=== PATIENT | male | born 1930 | race Caucasian/White ===

== ENCOUNTER 2016-10-16 15:03 | Emergency (ER) | payer MEDICARE, BC, OTHER ==
[2016-10-16 15:26] VITALS: BP 152/75
--- NOTE | 2016-10-16 15:53 | UC ---
Altered Mental Status HPI - HPI Summary HPI Summary: 85 year old male with history of TIA presents stating "Starting yesterday I was sitting down in bed and got up really fast, felt dizzy/woozy, not able to walk straight... Bent down to plug something in outlet and lost my balance, fell backwards on my bottom". Also c/o feeling "foggy" and "not myself" since yesterday- denies hitting head when he fell backwards/denies LOC. Pt states he uses cane to ambulate, lives alone at home and has aide come in 3xweek to help. 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 Denies fevers, or dysuria. (+) mild confusion per patient at times but per his staff and friends he states he fine. denies vision changes. he denies numbness in arm or leg. bilateral leg with "funny" sensation and weakness at times. Per patient mini stroke 3-4 weeks ago and went from [place] [facility] and sent to [facility] for [facility] and then to the [facility] . Had [place] with stent in 1999 and went to [facility] and no acute concerns . just got off heart monitor yesterday and normal per patient and "good report" and had normal labs at that time. Neuro if at the [facility] and cards at the [facility]. He had MRI brain [address] scan and they did not show any acute concerns. [ End ] - History Of Current Complaint Chief Complaint: UCGeneralIllness Stated Complaint: UNSTEADY WITH WALKING Time Seen by Provider: 10/16/16 15:26 Hx Obtained From: Patient Onset/Duration: Sudden Onset Severity Initially: Moderate Character: Confusion Aggravating Factor(s): Nothing Alleviating Factor(s): Nothing Associated Signs And Symptoms: Positive: Weakness - b/l LE - Risk Factors Cardiac Risk Factors: Prior GA CVA Risk Factor: Prior CVA/TIA - Allergies/Home Medications Allergies/Adverse Reactions: Allergies Allergy/AdvReac Type Severity Reaction Status Date / Time Penicillins Allergy Itching Verified 10/16/16 15:10 Home Medications: Home Medications Clopidogrel Bisulfate [Plavix] 1 tab BEDTIME 10/16/16 [History Confirmed ] Rest Of Med List Unobtainable 10/16/16 [History] PMH/Surg Hx/FS Hx/Imm Hx Previously Healthy: Yes Endocrine History: Diabetes, Dyslipidemia Cardiovascular History: Myocardial Infarction GI/ History: Renal Disease - Surgical History Surgical History: Yes Surgery Procedure, Year, and Place: cardiac stent. vasectomy - Social History Occupation: Retired Lives: Alone Alcohol Use: None Substance Use Type: None Smoking Status (MU): Never Smoked Tobacco - Immunization History Most Recent Influenza Vaccination: NOT YET 2017 Review of Systems Constitutional: Fatigue Eyes: Negative ENT: Negative Neurological: Weakness, Other - dizziness when standing up quickly All Other Systems Reviewed And Are Negative: Yes Physical Exam Triage Information Reviewed: Yes Appearance: Well-Appearing Vital Signs: Initial Vital Signs Temp 99 F 10/16/16 15:11 Pulse 64 10/16/16 15:11 Resp 20 10/16/16 15:11 BP 152/75 10/16/16 15:11 Pulse Ox 99 10/16/16 15:11 Vital Signs Reviewed: Yes ENT Exam: Normal Dental Exam: Normal Neck exam: Normal Respiratory Exam: Normal Cardiovascular Exam: Normal Abdominal Exam: Normal Musculoskeletal Exam: Normal Neurological Exam: Normal, Other - strength UE and LE 5/5 and DTR's intact. FTN intact. sensation intact. neuro deficits 2-12 intact. normal rhomberg, gait shows some mild shuffing Neurological: Positive: Alert, Muscle Tone Normal Psychological Exam: Normal Skin Exam: Normal AMS Course/Dx - Course Course Of Treatment: Advised patient to go to ED for further work up as he has multiple co morbities -- I spoke with his son Dr Good who was able to convince patient to go to ED as he declined when I advised to go there. - Differential Dx/Clinical Impression Differential Diagnosis/HQI/PQRI: CVA, Intracranial Bleed, TIA Provider Diagnoses: Dizziness / lethargy - Provider Notifications Discussed Patient Care With: Harvey Good - patients son -- [facility] Time Discussed With Above Provider: 16:33 - spoke with dr stephenson at [facility] Discharge - Discharge Plan Condition: Fair Disposition: HOME Referrals: Non Staff,Doctor [Primary Care Provider] - 5 Days
== END 2016-10-16 16:46 | disposition short-term general hospital (02) ==
LOC: UCCORT 15:03
DX: R42 Dizziness and giddiness (principal); R53.83 Other fatigue; E78.5 Hyperlipidemia, unspecified; E11.9 Type 2 diabetes mellitus without complications; I25.2 Old myocardial infarction
CPT/HCPCS: 99213; G0463

== ENCOUNTER → 2016-12-02 12:38 | Emergency (ER) | payer MEDICARE, BC, OTHER ==
[~2016-12-02 12:38] MED LIST: Aspirin EC TAB* 325 MG ONE; Aspirin TAB* 325 MG PO ONE; NS 0.9% 1000 ML* 1,000 ML IV ONE
--- NOTE | 2016-12-02 13:13 | RAD ---
Indication: Code Rios. Weakness. Vomiting. TIA last week. Comparison: April 16, 2009 CT. Technique: Noncontrast CT vertex of skull through foramen magnum. Report: Mild prominence of the cerebral sulci area in unremarkable ventricles and basal cisterns. Decreased density in the periventricular and subcortical white matter while non-specific is most likely due to chronic microangiopathy. Rios matter white matter differentiation is preserved without evidence for edema. No intra or extra axial hemorrhage, mass, or fluid collection detected. Unremarkable visualized orbital contents. Unremarkable calvarium and skull base. Unremarkable scalp. The visualized paranasal sinuses and mastoid air spaces are clear. IMPRESSION: Negative for intracranial hemorrhage or CT stigmata of ischemic stroke. Mild involutional change and stigmata of chronic small vessel ischemic disease with mild progression compared with the 2010 exam. Results discussed with Dr. Flores 12/02/2016 1:09 PM EDT
[2016-12-02 13:14] LABS: Hematocrit 35 % (42-52); Hemoglobin 11.9 g/dl (14.0-18.0); Mean Corpuscular HGB Conc 34 g/dl (31-36); Mean Corpuscular Hemoglobin 30 pg (27-31); Mean Corpuscular Volume 88 fL (80-94); Mean Platelet Volume 8 um3 (7.4-10.4); Red Blood Count 3.99 10^6/ul (4.0-5.4); Red Cell Distribution Width 14 % (10.5-15); White Blood Count 15.2 10^3/ul (3.5-10.8)
[2016-12-02 13:28] LABS: Albumin 4.1 g/dL (3.2-5.2); BUN/Creatinine Ratio 14.1 (8-20); Calcium 9.1 mg/dL (8.6-10.3); EGFR African American 64.6 (>60); EGFR Non-African American 50.2 (>60); Potassium 4.4 mmol/L (3.5-5.0); Total Bilirubin 0.5 mg/dL (0.2-1.0); Total Protein 7.1 g/dL (6.4-8.9)
[2016-12-02 13:29] LABS: Troponin I 0.02 ng/mL (<0.04)
--- NOTE | 2016-12-02 13:29 | RAD ---
HISTORY: Neurological changes COMPARISONS: December 02, 2013 VIEWS: 1: frontal portable view of the chest at 12:53 PM FINDINGS: LINES AND TUBES: None. CARDIOMEDIASTINAL SILHOUETTE: The cardiomediastinal silhouette is normal for portable technique. PLEURA: The costophrenic angles are sharp. No pleural abnormalities are noted. LUNG PARENCHYMA: The lungs are clear. ABDOMEN: The upper abdomen is clear. There is no subphrenic gas. BONES AND SOFT TISSUES: No bone or soft tissue abnormalities are noted. IMPRESSION: NO ACTIVE CARDIOPULMONARY DISEASE.
[2016-12-02 13:58] LABS: Urine Bacteria Absent (Absent); Urine Bilirubin Negative (Negative); Urine Glucose Negative (Negative); Urine Nitrite Negative (Negative)
--- NOTE | 2016-12-02 15:46 | ED ---
Tricia Callaway Alfonso, scribed for Dorian Flores MD on 12/02/16 at 1259 . Neurological HPI - HPI Summary HPI Summary: OMAR ABAD 20 MINUTES OVERHEADED AT 1209. This patient is an 86 year old M BIBA to [facility] with a chief complaint of dysphagia since between 0800 and 1000 today. He states I think It was a TIA and I couldnt talk. The patient rates the pain 0/10 in severity. Symptoms aggravated by nothing. Symptoms alleviated by nothing. EMS reports possible right-sided facial droop. - History of Current Complaint Chief Complaint: EDNeurologicalDeficit Stated Complaint: STROKE-LIKE SYMPTOMS Time Seen by Provider: 12/02/16 12:40 Hx Obtained From: Patient, EMS Onset/Duration: Started hours ago, Still Present Timing: Constant Pain Intensity: 0 Pain Scale Used: 0-10 Numeric Character: Other: - dysphagia, possible right-sided facial droop. 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 vasectomy - Family History Known Family History: Positive: Cardiac Disease, Other - Lung cancer - Social History Alcohol Use: None Substance Use Type: Reports: None Smoking Status (MU): Never Smoked Tobacco Review of Systems Negative: Fever Neurological: Other - Dysphagia, possible right-sided facial droop. All Other Systems Reviewed And Are Negative: Yes Physical Exam - Summary Physical Exam Summary: General: well-appearing, no pain distress Skin: warm, color reflects adequate perfusion, dry Head: normal Eyes: EOMI, FELIPE ENT: normal Neck: supple, nontender Respiratory: CTA, breath sounds present Cardiovascular: RRR Abdomen: soft, nontender Bowel: present Musculoskeletal: normal, strength/ROM intact Neurological: sensory/motor intact, A&O x3, See NIH scale Psychological: affect/mood appropriate Triage Information Reviewed: Yes Vital Signs On Initial Exam: Initial Vitals BP 190/80 12/02/16 12:57 Vital Signs Reviewed: Yes Diagnostics - Vital Signs Vital Signs Temp Pulse Resp BP Pulse Ox 12/02/16 15:00 25 188/83 12/02/16 14:30 16 176/77 12/02/16 14:00 18 179/66 12/02/16 13:03 95 12/02/16 13:00 184/82 12/02/16 12:59 98.2 F 81 14 182/84 97 12/02/16 12:57 190/80 - Laboratory Lab Results: Lab Results 12/02/16 12/02/16 12/02/16 Range/Units 13:01 13:01 13:01 WBC (3.5-10.8) 10^3/ul RBC (4.0-5.4) 10^6/ul Hgb (14.0-18.0) g/dl Hct (42-52) % MCV (80-94) fL MCH (27-31) pg MCHC (31-36) g/dl RDW (10.5-15) % Plt Count (150-450) 10^3/ul MPV (7.4-10.4) um3 Neut % (Auto) (38-83) % Lymph % (Auto) (25-47) % Bullitt % (Auto) (1-9) % Eos % (Auto) (0-6) % Baso % (Auto) (0-2) % Absolute Neuts (auto) (1.5-7.7) 10^3/ul Absolute Lymphs (auto) (1.0-4.8) 10^3/ul Absolute Monos (auto) (0-0.8) 10^3/ul Absolute Eos (auto) (0-0.6) 10^3/ul Absolute Basos (auto) (0-0.2) 10^3/ul Absolute Nucleated RBC 10^3/ul Nucleated RBC % INR (Anticoag Therapy) 0.98 (0.89-1.11) APTT 28.0 (26.0-36.3) seconds Sodium 137 (133-145) mmol/L Potassium 4.4 (3.5-5.0) mmol/L Chloride 104 (101-111) mmol/L Carbon Dioxide 26 (22-32) mmol/L Anion Gap 7 (2-11) mmol/L BUN 19 (6-24) mg/dL Creatinine 1.35 H (0.67-1.17) mg/dL Est GFR ( Amer) 64.6 (>60) Est GFR (Non-Af Amer) 50.2 (>60) BUN/Creatinine Ratio 14.1 (8-20) Glucose 153 H (70-100) mg/dL Lactic Acid 1.9 (0.5-2.0) mmol/L Calcium 9.1 (8.6-10.3) mg/dL Total Bilirubin 0.50 (0.2-1.0) mg/dL AST 11 L (13-39) U/L ALT 11 (7-52) U/L Alkaline Phosphatase 83 (34-104) U/L Troponin I 0.02 (<0.04) ng/mL Total Protein 7.1 (6.4-8.9) g/dL Albumin 4.1 (3.2-5.2) g/dL Globulin 3.0 (2-4) g/dL Albumin/Globulin Ratio 1.4 (1-3) Triglycerides 187 mg/dL Cholesterol 130 mg/dL LDL Cholesterol 55 mg/dL HDL Cholesterol 38.0 mg/dL Urine Color Urine Appearance Urine pH (5-9) Ur Specific Williams (1.010-1.030) Urine Protein (Negative) Urine Ketones (Negative) Urine Blood (Negative) Urine Nitrate (Negative) Urine Bilirubin (Negative) Urine Urobilinogen (Negative) Ur Leukocyte Esterase (Negative) Urine WBC (Auto) (Absent) Urine RBC (Auto) (Absent) Urine Bacteria (Absent) Urine Glucose (Negative) Blood Type Antibody Screen 12/02/16 12/02/16 12/02/16 Range/Units 13:01 13:01 13:37 WBC 15.2 H (3.5-10.8) 10^3/ul RBC 3.99 L (4.0-5.4) 10^6/ul Hgb 11.9 L (14.0-18.0) g/dl Hct 35 L (42-52) % MCV 88 (80-94) fL MCH 30 (27-31) pg MCHC 34 (31-36) g/dl RDW 14 (10.5-15) % Plt Count 197 (150-450) 10^3/ul MPV 8 (7.4-10.4) um3 Neut % (Auto) 80.1 (38-83) % Lymph % (Auto) 15.8 L (25-47) % Bullitt % (Auto) 3.4 (1-9) % Eos % (Auto) 0.4 (0-6) % Baso % (Auto) 0.3 (0-2) % Absolute Neuts (auto) 12.2 H (1.5-7.7) 10^3/ul Absolute Lymphs (auto) 2.4 (1.0-4.8) 10^3/ul Absolute Monos (auto) 0.5 (0-0.8) 10^3/ul Absolute Eos (auto) 0.1 (0-0.6) 10^3/ul Absolute Basos (auto) 0 (0-0.2) 10^3/ul Absolute Nucleated RBC 0.01 10^3/ul Nucleated RBC % 0.1 INR (Anticoag Therapy) (0.89-1.11) APTT (26.0-36.3) seconds Sodium (133-145) mmol/L Potassium (3.5-5.0) mmol/L Chloride (101-111) mmol/L Carbon Dioxide (22-32) mmol/L Anion Gap (2-11) mmol/L BUN (6-24) mg/dL Creatinine (0.67-1.17) mg/dL Est GFR ( Amer) (>60) Est GFR (Non-Af Amer) (>60) BUN/Creatinine Ratio (8-20) Glucose (70-100) mg/dL Lactic Acid (0.5-2.0) mmol/L Calcium (8.6-10.3) mg/dL Total Bilirubin (0.2-1.0) mg/dL AST (13-39) U/L ALT (7-52) U/L Alkaline Phosphatase (34-104) U/L Troponin I (<0.04) ng/mL Total Protein (6.4-8.9) g/dL Albumin (3.2-5.2) g/dL Globulin (2-4) g/dL Albumin/Globulin Ratio (1-3) Triglycerides mg/dL Cholesterol mg/dL LDL Cholesterol mg/dL HDL Cholesterol mg/dL Urine Color Straw Urine Appearance Clear Urine pH 7.0 (5-9) Ur Specific Williams 1.013 (1.010-1.030) Urine Protein 2+(100 mg/dl) H (Negative) Urine Ketones Negative (Negative) Urine Blood Negative (Negative) Urine Nitrate Negative (Negative) Urine Bilirubin Negative (Negative) Urine Urobilinogen Negative (Negative) Ur Leukocyte Esterase Negative (Negative) Urine WBC (Auto) Trace(0-5/hpf) (Absent) Urine RBC (Auto) Trace(0-2/hpf) (Absent) Urine Bacteria Absent (Absent) Urine Glucose Negative (Negative) Blood Type B Positive Antibody Screen Negative Result Diagrams: 12/02/16 13:01 12/02/16 13:01 Lab Statement: Any lab studies that have been ordered have been reviewed, and results considered in the medical decision making process. - Radiology CXR Radiology Interpretation Completed By: Radiologist - NO ACTIVE CARDIOPULMONARY DISEASE. ED physician has reviewed this radiology report and agrees. - CT Brain CT Interpretation Completed By: Radiologist - Negative for intracranial hemorrhage or CT stigmata of ischemic stroke. Mild involutional change and stigmata of chronic small vessel ischemic disease with mild progression compared with the 2010 exam. Results discussed with Dr. Flores 12/02/2016 1: 09 PM EDT. ED physician has reviewed this radiology report and agrees. - EKG 1314 Cardiac Rate: NL - BPM 81 EKG Rhythm: Sinus Rhythm EKG Interpretation: No Ectopy. ID [id number]. Nonspecific intraventricular conduction delay. NIH Scale - NIH Scale Level of Consciousness: Alert/Keenly Responsive Ask Patient the Month and His/Her Age: Both Correct Ask Pt to Open/Close Eyes and Isobutylene Operator Chief/Release Non-Paretic Hand: Both Correctly Best Gaze (Only Horizontal Eye Movement): Normal Visual Field Testing: No Visual Loss Facial Paresis-Pt to Smile & Close Eyes or Grimace Symmetry: Normal/Symmetrical Motor Function - Right Arm: No Drift-Holds 10 Seconds Motor Function - Left Arm: No Drift-Holds 10 Seconds Motor Function - Right Leg: No Drift-Holds 10 Seconds Motor Function - Left Leg: No Drift-Holds 10 Seconds Limb Ataxia-Must be out of Proportion to Weakness Present: Absent Sensory (Use Pinprick to Test Arms/Legs/Trunk/Face): Normal Best Language (Describe Picture, Name Items): Some Loss Dysarthria (Read Several Words): Normal Extinction and Inattention: No Abnormality Total Score: 1 Course/Dx - Course Course Of Treatment: DR THOMPSON, NEUROLOGY, SAW PATIENT IN ED. PATIENT GIVEN ASA 325MG PO IN ED. PATIENT/FAMILY WISHES PATIENT TO GO TO THE [facility]. THE [facility] HAS NEUROLOGY (FOR RECURRENT TIA WORKUP AND POSSIBLE EEG) AND VASCULAR SURGERY (IF PATIENT WERE TO REQUIRE AND ENDARTERECTOMY). ACCEPTED BY DR ROE AT THE [facility]. - Diagnoses Provider Diagnoses: History of recurrent TIAs, TIA (transient ischemic attack) - Physician Notifications Discussed Care Of Patient With: Rashaun Thompson Time Discussed With Above Provider: 12:46 Instructed by Provider To: Other - Consulted Dr. Thompson (neurologist) who will see the patient in the ED. Consulted Dr. Auguste from the [facility] at 1347 who agrees to admit the patient in a transfer. - Critical Care Time Critical Care Time: 30-74 min Discharge - Discharge Plan Condition: Stable Disposition: TRANS HIGHER LVL OF CARE FAC Referrals: Non Staff,Doctor [Primary Care Provider] - The documentation as recorded by the Tricia mayes Alfonso accurately reflects the service I personally performed and the decisions made by me, Dorian Flores MD.
[2016-12-02 16:48] VITALS: BP 170/86
--- NOTE | 2016-12-02 22:50 | CONS ---
CONSULTATION REPORT: DATE OF CONSULTATION: 12/02/2016. PATIENT OF: Dr. Flores in [facility]. HISTORY OF PRESENT ILLNESS: Mr. Good is an 86-year-old right-handed man, who I am asked to evaluate for possible stroke. History today is that he woke up at roughly 8 o'clock this morning and had apparently normal speech. Occasionally he will talk to himself and he had no problems with speech. He did not try to speak between 8 and 10 o'clock and then at roughly 10 o'clock he began trying to speak to himself, he had significant difficulty, said he could not get words out at all. He tried to call and use the phone and he had comprehension problems and could not manage to do that. Apparently, he says that [facility] found him at 11:00, and contacted the ambulance and brought him in. The last normal even if we take that his speech was normal at 8 o'clock and that no one else was there would have been somewhere between 8 and 10 o'clock and he presented shortly to the ER before 1 o'clock and was therefore not a TPA candidate. The most strict guidelines would call for 3- hour window even for him to seize over age 81, but even with a more loose 4-1/2 hour window, he was not a TPA candidate. His past history was that he had a stroke in 1999 and in the past month or so he has been evaluated in [facility] a few times for speech related problems. His history is from his son who is a physician and he has had speech related problems that last about an hour and resolve. The son notes that there has been a large workup at [place] and thinks it includes a CTA as well as EEG. He was also seen once on 10/16/16 with dizziness and wooziness and balance issues. He has had a prior AK as well. He is allergic to PENICILLIN with itching. He is on ongoing Plavix. Had a history of dyslipidemia and diabetes, AK and renal disease. He is status post cardiac stent and vasectomy. He is retired and lives alone and does not smoke, drink, or use substances. His med list is only known to include Plavix. REVIEW OF SYSTEMS: Negative in all 14 spheres other than in the HPI. He does have a mild frontal headache but no other symptoms. PHYSICAL EXAMINATION: On exam, temperature 98.2, pulse 81, respirations 14, blood pressure 184/82. I saw him within 15 to 20 minutes after arrival. He was alert and oriented x3. He spoke in full sentences. Overall he had some minor word finding difficulties that were spotty and he said his speech was not quite as fluent, although his speech sounded fluent to me. Comprehension was intact. Cranial nerves II through XII were intact other than a minor right facial weakness. Discs were sharp. Motor exam revealed normal tone and strength on both sides. No pronator drift. [id number] was intact. Chest: Clear. Cardiovascular: Regular rate and rhythm. Abdomen: Soft. Positive bowel sounds. There is no bruising or edema. LABORATORY DATA/DIAGNOSTIC STUDIES: The CT scan showed some mild chronic small vessel disease. Labs include white count 15.2, hematocrit 35, platelets 197,000. Normal INR and PTT. CMP had a creatinine of 1.35, glucose 153, LDL 55. UA had 2+ protein. ASSESSMENT AND PLAN: Mr. Good sounds like he had either small stroke or transient ischemic attack. He has minimal residual symptoms at this point and his last normal put him out of the TPA window. I had spoke to his son, a physician, who noted that they have both Vascular Surgery at [facility] and as well as neurologist there and that this is where he gets admitted for continuity of care. He thought that he has had recent imaging of his vasculature. At this point, the plan is most likely transfer to [facility] for further evaluation and workup as needed. Aspirin was given here, and I discussed with son that if echo and imaging of blood vessels have been done recently, then these should be done and it would be reasonable if an EEG has not been done, to screen him with an EEG because he is having episodes lasting about an hour that are stereotype, but this is more likely given the description brief recurrent transient ischemic attacks rather than seizures. Thank you for sharing his case. [id number]/[facility] #: [id number] ZAY
== END | disposition short-term general hospital (02) ==
LOC: ED 12:38
DX: G45.9 Transient cerebral ischemic attack, unspecified (principal); Z86.73 Personal history of transient ischemic attack (TIA), and cerebral infarction without residual deficits; R13.10 Dysphagia, unspecified
CPT/HCPCS: 36415; 70450; 71010; 80053; 80061; 81003; 81015; 83605; 84484; 85025; 85610; 85730; 86850; 86900; 86901; 93005; 99284; A9270-GY